=== PATIENT | female | born 1975 | race Caucasian/White ===

== ENCOUNTER → 2017-08-26 | Day surgery (SDC) | payer OTHER ==
[~2017-08-26] VITALS: Ht 172.7 cm; Wt 87.2 kg
[~2017-08-26] MED LIST: ACETAMINOPHEN/CODEINE 300 MG/30 MG TAB PO PRN; BUPIVACAINE/EPINEPHRINE 0.25% PF 30 ML VIAL ONE; CHLORHEXIDINE GLUCONATE 2 % 1 PACK (2 CLOTHS) TOPICAL PRN; DEXAMETHASONE SOD PHOS 4 MG/ML VIAL IV ONE; DO NOT ADM ANY ANTICOAGULANT DRUGS PRN; GLYCOPYRROLATE 1 MG/5 ML SYRINGE IV PUSH ONE; KETOROLAC TROMETHAMINE 30 MG/ML (IVP) VIAL IV PUSH ONE; LACTATED RINGER'S 1000 ML IV PRN; LIDOCAINE HCL 1% PF 5 ML SYRINGE OTHER ONE; METOPROLOL TARTRATE 25 MG TAB PO PRN; NEOSTIGMINE 5 MG/5 ML SYRINGE IV PUSH ONE; ONDANSETRON HCL 4 MG/2 ML VIAL IV ONE; POVIDONE IODINE 5% (ANTISEPSIS KIT) 4 APPLICATIONS EACH NARE PRN; PROPOFOL 200 MG/20 ML AMP IV ONE; ROCURONIUM INJ 50 MG/5 ML SYRINGE IV PUSH ONE; SODIUM CHLORID 0.9% 500 ML IV PRN; TYLETAB34 PO; ePHEDrine/NS 25 MG/5 ML SYRINGE IV ONE
[2017-08-26 06:53] LABS: AUTOMATED NEUTROPHIL # 2.5 TH/MM3 (1.8-7.7); BASOPHIL % 0.8 % (0.0-2.0); EOSINOPHIL # 0.1 TH/MM3 (0-0.4); EOSINOPHIL % 2.8 % (0.0-4.0); HEMATOCRIT 40.3 % (35.0-46.0); HEMO FLAGS DIFF FINAL; LYMPH % 35.4 % (9.0-44.0); LYMPHOCYTE # 1.7 TH/MM3 (1.0-4.8); MEAN CELL VOLUME 87.3 FL (80.0-100.0); MEAN CORPUSCULAR HEMOGLOBIN 29.7 PG (27.0-34.0); MONO % 9.1 % (0.0-8.0); NEUT % 51.9 % (16.0-70.0); PLATELET COUNT 282 TH/MM3 (150-450); RED BLOOD COUNT 4.61 MIL/MM3 (4.00-5.30); RED CELL DISTRIBUTION WIDTH 12.8 % (11.6-17.2); WHITE BLOOD COUNT 4.8 TH/MM3 (4.0-11.0)
--- NOTE | 2017-08-26 09:12 | PD.OP ---
Operative Report Date of Surgery: Aug 26, 2017 Preoperative Diagnosis: (1) Right ovarian cyst Postoperative Diagnosis: (1) Endometriosis determined by laparoscopy (2) Right ovarian cyst Procedure: operative laparoscopy with lysis of adhesions and right ovarian cyst biopsy Surgeon: Maninder Rutherford Retail Merchandising Specialist(s): Maninder Perry MD Aug 26, 2017 09:11
--- NOTE | 2017-08-26 09:21 | HHI.DCPOC ---
Discharge Care Plan Diagnosis: (1) Right ovarian cyst (2) Endometriosis determined by laparoscopy Report Symptoms to Your Doctor -Temperature above 100.5 degrees -Redness, of incision or excessive or foul smelling drainage -Unusual pain or calf pain -Increased vaginal bleeding -Painful or difficulty urinating -Feelings of extreme sadness or anxiety after 2 weeks Goals to Promote Your Health * To prevent worsening of your condition and complications * To maintain your health at the optimal level Directions to Meet Your Goals Take your medications as prescribed Follow your dietary instruction Follow activity as directed Ensure plenty of rest for recovery Drink fluids for hydration Keep your appointments as scheduled Take your immunizations and boosters as scheduled If your symptoms worsen call your PCP, if no PCP go to Urgent Care Center or Emergency Room Smoking is Dangerous to Your Health. Avoid second hand smoke Call the 24-hour crisis hotline for domestic abuse at Maninder Rutherford MD Aug 26, 2017 09:21
[2017-08-26 10:25] VITALS: BP 103/60; PULSE 63; RESP 18; TEMP 98.1; O2SAT 100
--- NOTE | 2017-08-26 23:57 | MP ---
cc: VELIA RUTHERFORD DATE OF SURGERY: 08/26/2017 PROCEDURE: Operative laparoscopy. PREOPERATIVE DIAGNOSIS: Right ovarian cyst. POSTOPERATIVE DIAGNOSIS: Right ovarian cyst, endometriosis. SURGEON: Dr. Velia Rutherford. ANESTHESIA: General. COMPLICATIONS None FINDINGS Slight adhesions with large 11 cm right ovarian complex cystic ovary. The patient requests not to have the ovary removed. PROCEDURE IN DETAIL After informed consent the patient was taken to the operating room. She was placed under general anesthesia, placed in [facility]. The abdomen, perineum and vagina prepped and draped in normal sterile fashion. A speculum was placed in the vagina. After time out was taken and adequate anesthesia was assured, the patient was prepped and draped. The speculum was placed in the vagina. Cervix grasped with single-tooth tenaculum. Uterine manipulator was placed in the cervix, [place] type. [place] catheter was placed to gravity after adequate anesthesia. Gloves were changed. A 5 millimeter infraumbilical incision was then made and entered the abdomen under direct visualization after injection of 0.25% Marcaine with epinephrine. Left and right lower quadrant trocars were placed, 5 mm type. We then surveyed the abdomen. There were some adhesions and some endometriosis. The endometriosis was all ablated. The adhesions were taken down where the ovary was completely free. A large multicystic ovary was drained of the cyst and a window was taken out of one of the cysts to be sent to pathology. The ovary was most probably a benign serous cystadenoma. There was no mucin or other abnormalities. At this point the window was removed from the ovarian cyst. The ovary was left in place. Good vascular was noted to the ovary still. The uterus was normal except for some endometriosis. The pelvis was irrigated free. There was no active bleeding and the procedure was ended. The 5 millimeter trocar sites were all closed. All instruments were removed from the vagina. The patient was taken to the Recovery Room in stable condition. MD DOMI Fernando/JIL /9:15 AM /11:45 PM
== END | disposition home or self-care (01) ==
LOC: HSDC 05:30
PROVIDERS: ATTEND Obstetrics & Gynecology
DX: N83.201 Unspecified ovarian cyst, right side (principal); N80.9 Endometriosis, unspecified
CPT/HCPCS: 00840; 49322; 58662; 85025; 86850; 86900; 86901; 88307; C1765; J1100; J1885; J2405; J2710; 88304